=== PATIENT | female | born 1955 | race Caucasian/White ===

== ENCOUNTER → 2019-08-31 | Outpatient (CLI) | payer MEDICARE, OTHER ==
[~2019-08-31] MED LIST: METHACHOLINE KIT (J7674) INH ONE
--- NOTE | 2019-08-31 10:17 | PFTRPT ---
Height: 66.00 Inches Weight: 235.00 Lbs BSA: 2.14 Diagnosis: R06.02 DATE OF PROCEDURE: 08/31/2019 ORDERED BY: Dr. Torres INTERPRETATION: Study of excellent technical quality. Under protocol, methacholine was administered. At a dose of 10 mg or 63.875 CDUs, a 25% decline in the FEV1 was noted. PC of 5.42 is significant. Flow rates did return to baseline post bronchodilator administration. IMPRESSION: Positive methacholine challenge study. MTDD
== END ==
LOC: M CARPUL 09:32
PROVIDERS: ATTEND Internal Medicine Pulmonary Disease
DX: R06.02 Shortness of breath (principal)
CPT/HCPCS: 94070; 95070; J7674